=== PATIENT | female | born 1950 | race Caucasian/White ===

== ENCOUNTER 2017-12-27 08:36 | Day surgery (SDC) | payer BC ==
[~2017-12-27 08:36] MED LIST: ACETAMINOPHEN 1,000 MG/100 ML BTL IV ONE; CLINDAMYCIN 600MG/50ML PREMIX 600 MG/50 ML BAG IVPB ONE; FAMOTIDINE 20MG TABLET PO ONE; MECLIZINE 25 MG TABLET PO ONE; METOCLOPRAMIDE 10 MG TABLET PO ONE
[2017-12-27] MEDS ORDERED: FENTANYL PF 100MCG/2ML VIAL IV ONE (08:37)
[2017-12-27] MEDS ORDERED: PROPOFOL 10 MG/ML VIAL IV ONE (08:37)
[2017-12-27] MEDS ORDERED: MIDAZOLAM HCL 2MG/2ML VIAL IV ONE (08:37)
[2017-12-27] MEDS ORDERED: BUPIVACAINE 0.25% W/EPI MPF 30ML VIAL IVP ONE (08:37)
[2017-12-27] MEDS ORDERED: LIDOCAINE 2% MDV (20MG/ML) 20ML VIAL IV ONE (08:37)
--- NOTE | 2017-12-27 16:50 | Operative Note ---
DATE OF SURGERY: 12/27/2017 Surgeon: Martir Blanco DO PREOPERATIVE DIAGNOSIS: Anterior scalp mass. POSTOPERATIVE DIAGNOSIS: Anterior scalp mass. OPERATION: Excision of scalp mass. PROCEDURE: The patient is a 67-year-old female who was brought to the operating room and placed in a supine position. Appropriate monitor was placed. Local IV sedation was given. The area around her scalp was prepped and draped in the usual fashion. The area around the mass was anesthetized with a total of 8 mL of 0.25% Sensorcaine with epinephrine. A 1.5 cm incision was made. This was carried down to the capsule of a large sebaceous cyst. This was dissected free from surrounding tissue and passed off the field. This measured about 2 cm into the subcu. The wound was then closed with 3-0 Prolene. Tolerated the procedure well. CC: JUAN LOCKWOOD MD, FACP [facility]
== END 2017-12-27 12:15 | disposition home or self-care (01) ==
LOC: SUR 08:36
PROVIDERS: ATTEND Surgery
DX: L72.11 Pilar cyst (principal); E78.00 Pure hypercholesterolemia, unspecified; G47.33 Obstructive sleep apnea (adult) (pediatric)

== ENCOUNTER 2019-01-13 09:17 | Day surgery (SDC) | payer BC ==
[2019-01-13] MEDS ORDERED: PROPOFOL 10 MG/ML VIAL IV ONE (09:18)
[2019-01-13] MEDS ORDERED: FENTANYL PF 100MCG/2ML VIAL IV ONE (09:18)
[2019-01-13] MEDS ORDERED: LIDOCAINE 2% MDV (20MG/ML) 20ML VIAL IV ONE (09:18)
--- NOTE | 2019-01-17 06:02 | Operative Note ---
DATE OF SERVICE: 01/13/2019. DATE OF SURGERY: 01/13/2019 REQUESTING PROVIDER: Jose Deluna MD. SURGEON: Maye Williamson MD. POSTOPERATIVE DIAGNOSES: 1. Normal esophagus. 2. Mild gastric pouchitis. 3. Normal gastrojejunal anastomosis. 4. Scattered left-sided colon diverticulosis. 5. Grade 1 internal hemorrhoids. OPERATION: ESOPHAGOGASTRODUODENOSCOPY AND COLONOSCOPY. INDICATION FOR PROCEDURE: This is a 68-year-old female with history of abdominal pain and post gastric bypass surgery, who presented for both esophagogastroduodenoscopy and colonoscopy. SEDATION: Sedation is per Anesthesia. Pulse oximetry was monitored throughout the duration of the procedure to maintain O2 saturation of 90% or greater. Supplemental oxygen was administered via nasal cannula. Cardiac and vital signs were monitored throughout the duration of the procedure and they were stable. PROCEDURE: The procedure of esophagogastroduodenoscopy and colonoscopy, risks and alternatives to the procedure, including risks of bleeding and perforation, among others, were explained to the patient. She voiced understanding and agrees to have the procedure done. Physical examination was performed and the patient was found stable for sedation. The patient was then placed in the left lateral position and sedation was initiated. A plastic bite block was inserted into the oral cavity. A lubricated Olympus [id number] gastroscope was then placed in the posterior oropharynx and under direct visualization was advanced to the proximal esophagus without difficulty. The esophageal mucosa was carefully examined upon introduction of the gastroscope. The proximal, mid, and distal esophageal mucosa appeared normal. The gastroscope was then advanced into the stomach and serial examination of the stomach revealed a small gastric pouch with normal gastrojejunal anastomosis. There were no ulcerations noted. The jejunum appeared normal. The gastroscope was then withdrawn into the stomach and retroflexion maneuver was performed. No other lesions were noted. Multiple gastric pouch biopsies were obtained. The gastroscope was then withdrawn and the procedures were terminated. The patient tolerated the procedures well without immediate complications. She remained in stable vital signs and was repositioned for colonoscopy. Digital rectal exam was performed and showed small external hemorrhoids with no palpable rectal masses. A lubricated Olympus PCF1 80AL colonoscope was then inserted into the rectum and under direct visualization was advanced to the cecum without difficulty. The ileocecal valve and appendiceal orifice were identified and photographed. The colonic mucosa was carefully examined upon introduction of the colonoscope. There were scattered diverticula noted in the sigmoid and descending colon. There were no other lesions noted. The colonoscope was then withdrawn while carefully reexamining the colonic mucosal surfaces. No other lesions were noted. In the rectum, retroflexion was performed and Grade 1 internal hemorrhoids were noted. The colonoscope was then withdrawn and the procedures were terminated. The patient tolerated the procedures well without immediate complications. She remained in stable vital signs and was transferred to the recovery room. PLAN AND RECOMMENDATIONS 1. She should be on a high fiber diet. 2. She is to have a repeat colonoscopy for screening purposes in 10 years. Thank you for allowing me to participate in the care of your patient. MOLLY
== END 2019-01-13 12:00 | disposition home or self-care (01) ==
LOC: HOP 09:17
PROVIDERS: ATTEND Internal Medicine Gastroenterology
DX: R10.9 Unspecified abdominal pain (principal); Z98.84 Bariatric surgery status; K57.30 Diverticulosis of large intestine without perforation or abscess without bleeding; K64.0 First degree hemorrhoids; K91.850 Pouchitis; R12 Heartburn; E78.00 Pure hypercholesterolemia, unspecified; E03.9 Hypothyroidism, unspecified; G62.9 Polyneuropathy, unspecified

== ENCOUNTER 2019-05-01 06:57 | Day surgery (SDC) | payer BC ==
[~2019-05-01 06:57] MED LIST changes: -ACETAMINOPHEN 1,000 MG/100 ML BTL IV ONE; +ACETAMINOPHEN 1,000 MG/100 ML BTL IVPB ONE; -CLINDAMYCIN 600MG/50ML PREMIX 600 MG/50 ML BAG IVPB ONE
[2019-05-01] MEDS ORDERED: FENTANYL PF 100MCG/2ML VIAL IV ONE (06:58)
[2019-05-01] MEDS ORDERED: LIDOCAINE 2% MDV (20MG/ML) 20ML VIAL IV ONE (06:58)
[2019-05-01] MEDS ORDERED: ROCURONIUM BROMIDE 50MG/5ML VIAL IV ONE (06:58)
[2019-05-01] MEDS ORDERED: PROPOFOL 10 MG/ML VIAL IV ONE (06:58)
[2019-05-01] MEDS ORDERED: ONDANSETRON HCL IV 4 MG/2 ML VIAL IVP ONE (06:58)
[2019-05-01] MEDS ORDERED: DEXAMETHASONE 4 MG/ML 1ML VIAL IVP ONE (06:58)
[2019-05-01] MEDS ORDERED: SUCCINYLCHOLINE 20 MG/ML 10ML IVP ONE (06:58)
[2019-05-01] MEDS ORDERED: SEVOFLURANE 250 ML INH ONE (06:58)
[2019-05-01] MEDS ORDERED: MIDAZOLAM HCL 2MG/2ML VIAL IV ONE (06:58)
[2019-05-01] MEDS ORDERED: KETOROLAC 30 MG/ML VIAL IVP ONE (06:58)
[2019-05-01] MEDS ORDERED: SUGAMMADEX SODIUM 200 MG/2 ML VIAL IV ONE (06:58)
[2019-05-01] MEDS ORDERED: RINGERS SOLUTION,LACTATED 1,000 ML IV ONE (07:42)
[2019-05-01] MEDS ORDERED: BUPIVACAINE 0.25% W/EPI MPF 30ML VIAL SQ ONE (08:50)
[2019-05-01] MEDS ORDERED: HYDROCODONE/APAP 5/325MG TABLET PO ONE (09:54)
--- NOTE | 2019-05-02 14:01 | Operative Note ---
DATE OF SURGERY: 05/01/2019 SURGEON: Martir Blanco DO PREOPERATIVE DIAGNOSIS: Chronic right upper quadrant pain. POSTOPERATIVE DIAGNOSIS: Chronic right upper quadrant pain. OPERATION: Laparoscopy with lysis of adhesions. INDICATION: The patient is a 68-year-old female who has had multiple-year history of chronic right upper quadrant pain. She has had CT scan upper and lower endoscopy and multiple imaging studies all of which were negative. She came to [facility] years ago for laparoscopy; however, I did decline. She came back again complaining of more abdominal pain. We did discuss laparoscopy. Risks, benefits, and alternatives were discussed. Risks include bleeding, infection, inadvertent bowel injury, need for laparotomy, nonresolution of her symptoms. She understood this fully. Thereafter, consent was signed and questions answered. PROCEDURE: The patient was taken to the operating room and placed in a supine position. General anesthesia was administered per the department of anesthesia. The patient's abdomen was prepped and draped in the usual fashion. The left upper quadrant region was cannulated with an 11 mm Visiport. All abdominal layers were traversed under direct visualization. I could clearly see the midline which was free of any adhesions. additional 5 mm port was then placed. The patient did have some omental adhesions in her right upper quadrant which were lysed sharply with laparoscopic and Metzenbaum scissors. This did clear her entire mid abdomen and right upper quadrant. Her Aleida-en-Y gastric bypass was identified. She had a couple loops of small bowel in her midline which were adherent to the peritoneum but these were left intact. The site of where her pain has been was cleared off with any and all adhesions. Respective photographs were taken. The rest of the exam was essentially normal. The bowel that I could see was inspected and noted to be free of any injury. At this point, pneumoperitoneum was released. All ports removed. The fascia was closed with 0 Vicryl in a [id number] fashion. Skin at both ports closed with 4-0 Vicryl. She was taken to the recovery room in stable condition. FINDINGS AT THE TIME OF SURGERY: Right upper quadrant adhesions, lysis of adhesions as above. MTDD
== END 2019-05-01 10:16 | disposition home or self-care (01) ==
LOC: SUR 06:57
PROVIDERS: ATTEND Surgery
DX: R10.11 Right upper quadrant pain (principal); E78.00 Pure hypercholesterolemia, unspecified; G47.33 Obstructive sleep apnea (adult) (pediatric); K21.9 Gastro-esophageal reflux disease without esophagitis
CPT/HCPCS: 49320; 00790; J1885; J2405; J3010; J3490; J0330; J7120